=== PATIENT | female | born 1935 | race Asian ===

== ENCOUNTER 2021-08-06 16:27 | Emergency (ER) | payer MEDICARE, SELFPAY ==
--- NOTE | 2021-08-06 | ECG_ITS ---
Test Reason : RIGHT ARM PAIN Blood Pressure : / mmHG Vent. Rate : 090 BPM Atrial Rate : 090 BPM P-R Int : 142 ms QRS Dur : 110 ms QT Int : 394 ms P-R-T Axes : 034 -72 010 degrees QTc Int : 481 ms Normal sinus rhythm Incomplete right bundle branch block Left anterior fascicular block Moderate voltage criteria for LVH, may be normal variant ( R in aVL , [place] product ) Abnormal ECG No previous ECGs available Referred By: Generic ED Physician Electronically Signed By:MONTY HAJI MD
--- NOTE | ~2021-08-06 | XR_ITS ---
EXAMINATION: XR SHOULDER, RIGHT CLINICAL INFORMATION: Shoulder pain without trauma COMPARISON: None TECHNIQUE: Three views of the right shoulder. FINDINGS: Degenerative changes are present shoulder with osteophytes involving the glenohumeral joint with sclerosis. Mild degenerative changes are also seen at the AC joint. No fractures or tendinous calcifications are seen. XR/XR shoulder RT min 2V IMPRESSION: Degenerative changes glenohumeral and acromioclavicular joint
--- NOTE | 2021-08-06 16:49 | PC.NURSE ---
no answer to triage [id number]
[2021-08-06 17:19] VITALS: BP 202/102; PULSE 103; RESP 18; TEMP 36.7; O2SAT 97; BMI 28.3
[2021-08-06 17:51] LABS: MANUAL DIFF FLAG NO
[2021-08-06 17:53] LABS: Basophils Percent Auto 0.2 % (0-2); Eosinophils Absolute Auto 0.1 X10*3/uL (0.0-0.4); Eosinophils Percent Auto 1.1 % (0-4); Hematocrit 44.3 % (37.0-47.0); Hemoglobin 15.1 g/dl (12.0-16.0); Imm Gran Abs Auto 0.03 X10*3/uL (0.00-0.03); Imm Gran Pct Auto 0.4 % (0.0-0.4); Lymphocytes Percent Auto 35.3 % (20-40); Mean Corpuscular HGB Conc 34.1 g/dl (31.0-35.0); Mean Corpuscular Hemoglobin 34.1 pg (27.0-33.0); Mean Platelet Volume 8.9 fL (9.4-12.3); Monocytes Absolute Auto 0.6 X10*3/uL (0.1-1.2); Monocytes Percent Auto 7.3 % (2-11); Neutrophils Absolute Auto 4.7 x10*3/uL (2.0-8.3); Neutrophils Percent Auto 55.7 % (45-73); Platelet Count 201 X10*3/uL (160-400); Red Blood Count 4.43 X10*6/uL (4.20-5.50); Red Cell Distribution Width 12.4 % (11.0-16.0); White Blood Count 8.4 X10*3/uL (4.8-10.8)
[2021-08-06 18:15] LABS: Alanine Aminotransferase 12 U/L (0-31); Alkaline Phosphatase 68 U/L (39-117); Anion Gap 13 (12-20); Aspartate Amino Transferase 18 U/L (5-31); Bilirubin Total 0.5 mg/dL (0.0-1.0); Blood Urea Nitrogen 15 mg/dL (9-16); Calcium 9.7 mg/dL (8.4-10.2); Carbon Dioxide 30 mmol/L (22-29); Chloride 97 mmol/L (96-108); Creatinine Clr Calc Pharmacy 35.4; Estimated Glomerular Filt Rate 57; Glucose Random 386 mg/dL (60-115); Potassium 4.2 mmol/L (3.3-5.1); Sodium 136 mmol/L (135-145); Total Protein 8.4 g/dL (6.5-8.0)
[2021-08-06 18:16] LABS: Troponin-I High Sensitivity 21.7 ng/L (<3.5-17.0)
--- NOTE | 2021-08-06 20:20 | ED.EXTPRO ---
HPI - Extremity Problem General Chief complaint: Extremity Problem Stated complaint: right arm sore x 3 weeks Time Seen by Provider: 08/06/21 20:12 Source: patient Mode of arrival: ambulatory Limitations: no limitations History of Present Illness HPI Narrative: Patient complaining of pain in the right shoulder over last 3 weeks denies any known injury unable to lift the hand above shoulder also patient noticed to have high blood pressure and high blood sugar she missed her medication today denies any headache no chest pain no palpitation Related Data Allergies Allergy/AdvReac Type Severity Reaction Status Date / Time No Known Allergies Allergy Unverified 03/09/20 17:49 Review of Systems Review of Systems: Yes all other systems are reviewed and are negative [facility] Past Medical History Medical History HTN (hypertension) Social History Social History Advance Directives: No Advance Directives Information Provided: Yes Physical Exam Vital Signs: Vital Signs: Last Vital Signs Temp 98.1 F 08/06/21 20:46 Pulse 100 08/06/21 20:46 Resp 16 08/06/21 20:46 BP 180/96 H 08/06/21 20:46 Pulse Ox 98 08/06/21 20:46 BMI result Body Mass Index 28.3 Appearance: Alert. Oriented X3. No acute distress. Eyes: No pallor or icterus ENT: Pharynx normal. Oral Mucosa moist Neck: Normal inspection. Neck supple. CVS: Normal heart rate and rhythm. Pulses normal. Respiratory: No respiratory distress. Equal air entry bilateral, no wheezing/rales/rhonchi Abdomen: Soft and nontender. Bowel sounds are present, no mass palpable, no CVA tenderness Skin: Skin warm and dry. Normal skin color. Normal skin turgor. Extremities: No lower extremity edema. No calf tenderness tenderness at the right subacromial area limited abduction above 90 degrees pain no limitation of internal rotation or external rotation Neuro: Oriented X 3. No motor deficit. No sensory deficit.No cerebellar signs , cranial nerves II-XII intact MDM - Extremity (Nontraumatic) MDM Narrative Medical decision making narrative: Patient with L humerus neck fracture sling was applied Tylenol for the pain advise follow-up with orthopedic Lab Data Result diagrams: 08/06/21 17:40 08/06/21 17:40 Labs: Lab Results 08/06/21 08/06/21 08/06/21 Range/Units 17:40 17:40 17:40 WBC 8.4 (4.8-10.8) X10*3/uL RBC 4.43 (4.20-5.50) X10*6/uL Hgb 15.1 (12.0-16.0) g/dl Hct 44.3 (37.0-47.0) % MCV 100.0 H (80.0-98.0) fL MCH 34.1 H (27.0-33.0) pg MCHC 34.1 (31.0-35.0) g/dl RDW 12.4 (11.0-16.0) % Plt Count 201 (160-400) X10*3/uL MPV 8.9 L (9.4-12.3) fL Immature Gran % (Auto) 0.4 (0.0-0.4) % Neut % (Auto) 55.7 (45-73) % Lymph % (Auto) 35.3 (20-40) % [place] % (Auto) 7.3 (2-11) % Eos % (Auto) 1.1 (0-4) % Baso % (Auto) 0.2 (0-2) % Lymph # (Auto) 3.0 (1.2-4.9) X10*3/uL [place] # (Auto) 0.6 (0.1-1.2) X10*3/uL Eos # (Auto) 0.1 (0.0-0.4) X10*3/uL Baso # (Auto) 0.0 (0.0-0.2) X10*3/uL Abs Immat Gran (auto) 0.03 (0.00-0.03) X10*3/uL Absolute Neuts (auto) 4.7 (2.0-8.3) x10*3/uL Absolute Nucleated RBC 0.000 (0.0-0.012) X10*3/uL Nucleated RBC % (auto) 0.0 (0.0-0.2) /100WBC Sodium 136 (135-145) mmol/L Potassium 4.2 (3.3-5.1) mmol/L Chloride 97 (96-108) mmol/L Carbon Dioxide 30 H (22-29) mmol/L Anion Gap 13 (12-20) BUN 15 (9-16) mg/dL Creatinine 0.94 (0.5-1.4) mg/dL Estim Creat Clear Calc 35.4 Estimated GFR 57 Random Glucose 386 H* (60-115) mg/dL Calcium 9.7 (8.4-10.2) mg/dL Total Bilirubin 0.5 (0.0-1.0) mg/dL AST 18 (5-31) U/L ALT 12 (0-31) U/L Alkaline Phosphatase 68 (39-117) U/L Troponin I High Sens 21.7 H (<3.5-17.0) ng/L Total Protein 8.4 H (6.5-8.0) g/dL Albumin 4.0 (3.5-5.0) g/dL Discharge Plan Discharge Clinical Impression: Right rotator cuff tendinitis Patient Disposition: Home, Self-Care Instructions: Rotator Cuff Tendinitis (ED) Additional Instructions: Wear the sling for support Follow with PCP for physical therapy and further evaluate Tylenol for pain Take blood pressure medicine and diabetic medication on time Referrals: Aiden Rodriguez MD [Physician] - 1 week Interventions: ED Discharge Assessment Last Done: 08/06/21 21:52 Discharge Date/Time: 08/06/21 21:53
[2021-08-06 20:46] VITALS: BP 180/96; PULSE 100; RESP 16; TEMP 36.7; O2SAT 98
--- NOTE | 2021-08-06 21:53 | PC.NURSE ---
I assumed care of this pt upon her arrival to bed 1, where she presented with c/o L shoulder pain, worse with movement./ Respirations are spontaneous and non-labored, she is calm and cooperative, speech clear and appropriate. She ambulates independently and with steady gait. Discharged at this time. She verbalized an understanding of all DC orders and ambulated out of the ED independently and with steady gait.
== END 2021-08-06 21:53 | disposition home or self-care (01) ==
PROVIDERS: Emergency Provider Internal Medicine; PCP Internal Medicine
DX: M77.8 Other enthesopathies, not elsewhere classified (principal); M25.511 Pain in right shoulder; I10 Essential (primary) hypertension
CPT/HCPCS: 36415; 73030; 80053; 84484; 85025; 93005; 99283

== ENCOUNTER → 2022-04-08 12:48 | Outpatient (BNVA) | payer MEDICARE, BC, SELFPAY | PROVIDERS: PCP Internal Medicine; Visit Provider Psychiatry & Neurology Neurology | DX: F09 Unspecified mental disorder due to known physiological condition (principal); R26.9 Unspecified abnormalities of gait and mobility; R25.9 Unspecified abnormal involuntary movements | CPT/HCPCS: 99202 ==

== ENCOUNTER → 2022-10-21 12:19 | Outpatient (BNVA) | payer MEDICARE, BC, SELFPAY | PROVIDERS: PCP Internal Medicine; Visit Provider Psychiatry & Neurology Neurology | DX: F09 Unspecified mental disorder due to known physiological condition (principal); R26.9 Unspecified abnormalities of gait and mobility; R25.9 Unspecified abnormal involuntary movements | CPT/HCPCS: 99212 ==

== ENCOUNTER 2024-12-03 08:42 | Outpatient (AMB) | payer MEDICARE, BC, SELFPAY ==
--- NOTE | 2024-12-03 08:44 | A.OFFVIS_ITS ---
Vital Signs 12/03/24 08:45 Height 4 ft 11 in Weight 122 lb BMI 24.6 BP 128/70 Blood Pressure Location Rt brachial Position Sitting Pulse 72 Pulse Source Pulse Oximeter Pulse Oximetry (%) 100 Oxygen Delivery Method Room Air Intake Visit Reasons: follow up RESCHED Intake Note: patient following up on cognitive disorder Allergies Opioids - Morphine Analogues Adverse Reaction (Mild, Verified 12/03/24 08:46) Unknown Medication List - Last Reconciled 12/03/24 by Emily Monroy MD allopurinol 100 mg PO DAILY aspirin,buffd-calcium carb-mag 325 mg 1 tab PO DAILY blood sugar diagnostic (FreeStyle Lite Strips) As directed blood sugar diagnostic (FreeStyle Precision [place] Strips) As directed dulaglutide 1.5 mg subcut QWEEK empagliflozin (Jardiance) 25 mg PO DAILY flash glucose scanning reader (Almaviva SantéStyle Jordan 14 Day [place]) As directed flash glucose sensor (FreeStyle Jordan 14 Day Sensor kit) As directed glipizide 5 mg PO BID lancets (Almaviva SantéStyle Lancets) As directed metformin 500 mg PO DAILY metoprolol tartrate 50 mg PO BID nitroglycerin 0.4 mg sublingual Q5M PRN HPI Comments Details: 89y/o female comes for follow up of cognitive impairment, abnormal right UE movement,.No change since last visit.she has intermittent forgetfulness but not significant.Right hand involuntary movements are stable she is accompanied by her son who is also her HCP . she lives alone . Her children take turns to clean her house , take care of her PETS , make her breakfast , supper , meds .she does not take her meds if she not given to her . she forgets to take he medications and her diabetes was poorly controlled in the past but since her children started to help with meds her diabetes is better controlled. However she is refusing external care and her cadult children are concerned that they are not providing enough care for her. In Jun 2021- she had tooth extraction and after that she developed right shoulder pain, right tooth pain and abnormal right hand movements. The right hand movements are better now. Initially her right UE had high amplitude flailing movements. she had some memory loss on and off in 2020 but has worsened significantly in 2021. 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 she is accompanied by her son she lives alone. she is independent in most ADLs.she does not drive . she is hearing is better now. she denies sleep issues . [facility] Medical History (Updated 12/03/24 @ 09:10 by Emily Monroy MD) Dementia Hearing loss Falls Abnormal movements Hyperlipidemia CAD (coronary artery disease) Chronic gout B12 deficiency Diabetes Arthritis History of sigmoidoscopy HTN (hypertension) Surgical History S/P right coronary artery (RCA) stent placement S/P TKR (total knee replacement) Hx of cholecystectomy Hx of laparoscopy Family History Family/Other No problems noted. Mother Diabetes Son Diabetes Social History Alcohol intake: never Patient Tobacco Use Status: Never used Tobacco Physical Exam Vital Signs: Last Vital Signs Pulse 72 12/03/24 08:45 BP 128/70 12/03/24 08:45 Pulse Ox 100 12/03/24 08:45 Oxygen Delivery Method Room Air 12/03/24 08:45 BMI result Body Mass Index 24.6 Const Other: severely hard of hearing so was frustarted throughout this exam General: comfortable Nutritional Appearance: thin Orientation/consciousness: patient oriented x3 Neuro Other: Right hand trigger finger General: patient oriented x3, tone normal, moves all extremities and Unable to assess gait Cranial nerves: Yes Facial sensation intact/muscles of mastication intact, Yes Bilaterally intact EOM present, Yes Nystagmus not present and Yes Normal facial strength present Cognition (Neuro): abnormal cognition Gait exam (Neuro): Unable to assess gait Motor exam (neuro): Normal motor muscle tone present throughout Coordination: [id number] test normal Orientation Where are we (state) (county) (town or city) (hospital) (floor)?: state, town or city and hospital/clinic Registration Name of 3 unrelated objects clearly and slowly, then ask patient to repeat all 3 of them. (1st repeat determines score. Make sure they can repeat all three): object 1, object 2 and object 3 Attention & Calculation (CHOOSE ONE) Spell WORLD backwards (DLROW): 5 letters Language Show patient a wristwatch & ask what it is. Repeat for pencil.: watch and pencil Ask the patient to repeat the phrase 'No ifs, ands, or buts' after you.: correct Ask the patient to 'take a piece of paper with their right hand' 'fold paper in half' 'place paper on floor': take paper in right hand, fold paper in half and place paper on floor Print the sentence 'CLOSE YOUR EYES' on a piece. If patient actually closes eyes then score.: followed written direction Give patient a blank piece of paper & ask to write a sentence. Score if it contains a noun & verb.: sentence contains subject and verb Score Score: 19 Assessment & Plan Assessment & Plan (1) Dementia: Comment: Vascular vs mixed MMSE 19/30 worse since last visit Code(s): F03.90 - Unspecified dementia, unspecified severity, without behavioral disturbance, psychotic disturbance, mood disturbance, and anxiety Category: Medical Qualifiers: Dementia type: unspecified type Dementia severity: moderate Dementia behavioral or psychological symptom: with mood disturbance Qualified Code(s): F03.B3 - Unspecified dementia, moderate, with mood disturbance (2) Gait disorder: Comment: ? neuropathy, musculoskeletal ? Code(s): R26.9 - Unspecified abnormalities of gait and mobility Category: Medical Plan Her cognition is worse and progressed to dementia needs risk factor management and supervised care at home . she will not be bale to take decisions pertaining to her care . HCP should be invoked for her safety she will need assistance with medications, personal hygiene, home care etc Please contact [facility] senior services or [facility] for [employer] and nursing services Coding Level of Care Code Est Pt Level 4 (25163) Complex EM visit Add On G2211 Diagnoses Moderate dementia with mood disturbance, unspecified dementia type F03.B3 Dementia type: unspecified type Dementia severity: moderate Dementia behavioral or psychological symptom: with mood disturbance Gait disorder R26.9
[2024-12-03 08:45] VITALS: BP 128/70; PULSE 72; O2SAT 100; BMI 24.6
--- OUTSIDE RECORDS SUMMARY | 2024-12-03 08:53 | XMS_ITS | Encounter Summary ---
Author Organization [facility] Address [address] [place] [address] Care Team Providers Care Internet Ecommerce Specialist Name Role Phone Lupe Bowman MD Primary Care Provider [phone] Reason for Visit * Reason Onset Date Comments Fitting for DME 11/12/2024 Encounter Details Date Type Department Care Team ([facility] st Contact Info) Description 11/12/2024 Telephone Adult Medicine [address] [phone] Marti Rodrigues LPN Fitting for DME Social History Tobacco Use Types Packs/Day Years Used Date Smoking Tobacco: Never Smokeless Tobacco: Never Alcohol Use Standard Drinks/Week Comments No 0 (1 standard drink = 0.6 oz pur e alcohol) Comments Unknown Sex and Gender Information Value Date Recorded Sex Assigned at Not on file Legal Sex Female 3:32 AM EST Gender Identity Not on file Sexual Orientation Not on file documented as of this encounter Progress Notes * Marti Rodrigues LPN - 11/18/2024 9:52 AM EDT This is being taken care of By Dr Bowman's nurse Zahira As she had Dr Bowman sign the form for this I will forward the message to her to * Annabella Bronson - 11/17/2024 2:57 PM EDT Marti, are you able to help with this? [facility] for Free Style Jordan 2 but has been waiting for last office note. Caller has asked several times and is still waiting. The fax number is [facility] [phone]. Caller states he has faxed a RADHA several times. documented in this encounter Plan of Treatment Upcoming Encounters Date Type Department Care Team (Late st Contact Info) Description 12/22/2024 3:00 PM EDT Office Visit Endocrinology [address] [phone] Nadia Torres PA [address] [facility] [place] [address] 01/20/2025 1:15 PM EDT Office Visit [facility] [place] [address] [phone] Lupe Bowman MD [address] [place] [address] documented as of this encounter Visit Diagnoses Not on filedocumented in this encounter Additional Health Concerns Assessment Noted Time PHQ-9 Depression Total Score: 0 07/13/19 25 11:22 AM EST A fall risk assessment has been complete d for the patient 07/13/2024 11:20 AM EST documented as of this encounter Care Teams Internet Ecommerce Specialist Relationship Specialty Start Date End Date Lupe Bowman MD [address] [place] [address] PCP - General 03/10/00 documented as of this encounter
== END 2024-12-03 09:15 | disposition home or self-care (01) ==
LOC: HO.HSMS 08:42
PROVIDERS: PCP Internal Medicine; Visit Provider Psychiatry & Neurology Neurology
DX: F03.B3 Unspecified dementia, moderate, with mood disturbance (principal); R26.9 Unspecified abnormalities of gait and mobility
CPT/HCPCS: 99214; G2211

== ENCOUNTER → 2024-12-03 08:42 | Outpatient (BNVA) | payer MEDICARE, BC, SELFPAY | PROVIDERS: PCP Internal Medicine; Visit Provider Psychiatry & Neurology Neurology | DX: F03.B3 Unspecified dementia, moderate, with mood disturbance (principal); R26.9 Unspecified abnormalities of gait and mobility | CPT/HCPCS: 99212 ==